=== PATIENT | female | born 1960 | race Two or more races ===

== ENCOUNTER 2022-07-05 10:05 | Outpatient (CLI) | payer OTHER ==
[~2022-07-05 10:05] MED LIST: ZEBETA5 MG PO
== END 2022-07-05 10:13 | disposition home or self-care (01) ==
LOC: RAD 10:05
DX: J45.30 Mild persistent asthma, uncomplicated (principal); I49.8 Other specified cardiac arrhythmias; E78.5 Hyperlipidemia, unspecified; R09.89 Other specified symptoms and signs involving the circulatory and respiratory systems; J20.8 Acute bronchitis due to other specified organisms; J45.31 Mild persistent asthma with (acute) exacerbation

== ENCOUNTER → 2022-07-12 | Emergency (ER) | payer OTHER ==
[~2022-07-12] VITALS: Ht 162.6 cm; Wt 66.2 kg
[~2022-07-12] MED LIST changes: +EZETIMIBE10 MG PO; +MONTELUKAST SOD10 MG PO; +TRELEGY ELLIPT1 EAC1 IH
== END | disposition home or self-care (01) ==
LOC: ER 09:05
DX: S00.93XA Contusion of unspecified part of head, initial encounter (principal); W18.39XA Other fall on same level, initial encounter; Y93.B9 Activity, other involving muscle strengthening exercises; Y92.39 Other specified sports and athletic area as the place of occurrence of the external cause; Y99.9 Unspecified external cause status; I10 Essential (primary) hypertension; M62.838 Other muscle spasm

== ENCOUNTER 2022-09-01 13:34 | Outpatient (CLI) | payer OTHER | END 2022-09-01 13:42 | disposition home or self-care (01) | LOC: MAMO-SONO 13:34 | PROVIDERS: ATTEND Obstetrics & Gynecology | DX: N60.11 Diffuse cystic mastopathy of right breast (principal); N60.12 Diffuse cystic mastopathy of left breast; N83.01 Follicular cyst of right ovary; N83.02 Follicular cyst of left ovary ==

== ENCOUNTER 2023-04-19 07:42 | Outpatient (CLI) | payer OTHER | END 2023-04-19 07:47 | disposition home or self-care (01) | LOC: SONOGRAMA 07:42 | PROVIDERS: ATTEND Anesthesiology | DX: K80.00 Calculus of gallbladder with acute cholecystitis without obstruction (principal) ==

== ENCOUNTER 2023-07-12 07:34 | Outpatient (CLI) | payer OTHER | END 2023-07-12 07:48 | disposition home or self-care (01) | LOC: TOM 07:34 | DX: J45.50 Severe persistent asthma, uncomplicated (principal); I49.9 Cardiac arrhythmia, unspecified; E78.5 Hyperlipidemia, unspecified; K29.50 Unspecified chronic gastritis without bleeding; J30.81 Allergic rhinitis due to animal (cat) (dog) hair and dander; Z91.09 Other allergy status, other than to drugs and biological substances; J84.10 Pulmonary fibrosis, unspecified; R76.8 Other specified abnormal immunological findings in serum ==

== ENCOUNTER 2023-12-11 10:02 | Outpatient (CLI) | payer OTHER | END 2023-12-11 10:16 | disposition home or self-care (01) | LOC: MAMO-SONO 10:02 | PROVIDERS: ATTEND Obstetrics & Gynecology Obstetrics | DX: N63.0 Unspecified lump in unspecified breast (principal); N64.4 Mastodynia; N95.0 Postmenopausal bleeding; N95.1 Menopausal and female climacteric states ==

== ENCOUNTER 2023-12-27 12:59 | Outpatient (CLI) | payer OTHER | END 2023-12-27 13:00 | disposition home or self-care (01) | LOC: NUCLEAR 12:59 | DX: M81.0 Age-related osteoporosis without current pathological fracture (principal) ==

== ENCOUNTER 2024-04-17 13:20 | Outpatient (CLI) | payer OTHER | END 2024-04-17 13:41 | disposition home or self-care (01) | LOC: MRI 13:20 | DX: M54.6 Pain in thoracic spine (principal) | CPT/HCPCS: 72146 ==

== ENCOUNTER 2024-07-02 12:43 | Outpatient (CLI) | payer OTHER | END 2024-07-02 12:56 | disposition home or self-care (01) | LOC: SONOGRAMA 12:43 | PROVIDERS: ATTEND Internal Medicine Gastroenterology | DX: R10.9 Unspecified abdominal pain (principal) ==